=== PATIENT | female | born 1970 | race Caucasian/White ===

== ENCOUNTER → 2016-06-20 | Day surgery (SDC) | payer OTHER ==
[~2016-06-20] MED LIST: KETOROLAC TROMETHAMINE 30 MG/ML (IVP) VIAL IV PUSH ONE; LACTATED RINGER'S 1000 ML INJ 1,000 ML ONE; MEPERIDINE HCL 25 MG/ML VIAL ONE; MEPERIDINE HCL 50 MG/ML VIAL ONE; MIDAZOLAM HCL 2 MG/2 ML VIAL ONE; ONDANSETRON HCL 4 MG/2 ML VIAL IV PUSH ONE; PROPOFOL 200 MG/20 ML AMP IV ONE; ceFAZolin INJ 1,000 MG VIAL ONE; oxyCODONE/ACETAMINOPHEN 5 MG/325 MG TAB ONE
--- NOTE | 2016-06-22 22:01 | MP ---
cc: SUKH WALDEN M.D. DATE OF SURGERY 06/20/16 PREOPERATIVE DIAGNOSIS Desires permanent sterility. POSTOPERATIVE DIAGNOSIS Desires permanent sterility. PROCEDURE Laparoscopic bilateral tubal ligation by fulguration with Kleppinger forceps SURGEON Jolie Walden MD ANESTHESIA General. ESTIMATED BLOOD LOSS 30 mL COMPLICATIONS None. FINDINGS The patient had grossly normal fallopian tubes and ovaries. There were several benign-appearing subcentimeter follicular type cyst on both ovaries. The liver, upper abdominal organs were all grossly normal. DESCRIPTION OF PROCEDURE The patient brought into the operating room, following general anesthesia was placed in dorsal lithotomy position. Vagina, abdomen and perineum were prepped and draped. The HUMI catheter was placed in the uterus. The bladder was drained with a red rubber catheter. A 1-cm subumbilical skin incision was made. The Veress needle was inserted and 3 liters of CO2 was infused into the abdomen. The Veress needle was then removed and laparoscope was placed without difficulty. A second puncture site was created under direct visualization. The findings were as noted above. The Falope ring applicator was loaded and we attempted to place a ring on the left tube, however, it would not disengage from the applicator and there was a slight tear in the tube. We therefore elected to proceed with a Kleppinger tubal ligation by fulguration. Kleppinger forceps were used to fulgurate the proximal 4 cm of both fallopian tubes. The tubes were cut to get a visual look at the underside to be sure they were fulgurated. It appeared they were not so these were refulgurated again with the Kleppinger forceps. At that point, good fulguration was noted above tubes. Photos of all areas were taken. With no other pathology present, all instruments were removed and the CO2 gas was allowed to escape. The incisions were then closed with subcuticular 4-0 Vicryl stitch. The patient was then taken to recovery room in good condition with all counts correct. She will be discharged home when stable and alert to be followed up in 1 week in our office. Her discharge medication is Percocet. She was given instructions on physical activity, instructed to resume regular diet as tolerated. MD KAREN Darnell/ /11:38 AM /9:55 PM
== END | disposition home or self-care (01) ==
LOC: ESDC 09:14
PROVIDERS: ATTEND Obstetrics & Gynecology
DX: Z30.2 Encounter for sterilization (principal)
CPT/HCPCS: 00851; 58670; J0690; J1885; J2175; J2250; J2405; J7120

== ENCOUNTER 2017-03-21 14:52 | Emergency (ER) | payer MEDICARE, OTHER ==
[~2017-03-21] VITALS: Ht 170.2 cm; Wt 65.0 kg
[2017-03-21 14:54] VITALS: BP 131/66; PULSE 71; RESP 16; TEMP 98.4; O2SAT 100
[2017-03-21] MEDS ORDERED: VENL1CAP38 PO (15:25)
[2017-03-21] MEDS ORDERED: MONT4CHW2 CHEW (15:25)
[2017-03-21] MEDS ORDERED: ZOFR4TAB3 SL (15:25)
[2017-03-21] MEDS ORDERED: XANA1TAB2 PO (15:25)
[2017-03-21] MEDS ORDERED: CETI5CHW CHEW (15:25)
[2017-03-21] MEDS ORDERED: AMOX250C3 PO (15:25)
[2017-03-21] MEDS ORDERED: SODIUM CHLORIDE 0.9% FLUSH 10 ML FLUSH IVF PRN (15:45)
--- NOTE | 2017-03-21 15:54 | RADRPT ---
EXAM DATE/TIME: 03/21/2017 15:42 [facility] COMPARISON: No previous studies available for comparison. INDICATIONS : Short of breath. MEDICAL HISTORY : None. SURGICAL HISTORY : None. ENCOUNTER: Initial ACUITY: 1 day PAIN SCORE: 0/10 LOCATION: Bilateral chest FINDINGS: A single view of the chest demonstrates the lungs to be symmetrically aerated without evidence of mas s, infiltrate or effusion. The cardiomediastinal contours are unremarkable. Osseous structures are intact. CONCLUSION: Normal examination for a patient of this age. Aditya Mercer MD on March 21, 2017 at 15:52 Board Certified Radiologist. This report was verified electronically.
--- NOTE | 2017-03-21 17:06 | PD ---
HPI Chief Complaint: Chest Pain Time Seen by Provider: 15:44 Travel History International Travel<30 days: No Contact w/Intl Traveler<30days: No Traveled to known affect area: No History of Present Illness HPI 46-year-old female with PMH of anxiety, COPD, Crohn's disease, current smoker presents to the ED for evaluation of 6/10 left-sided chest pain. Patient reports the pain is 4/10 on presentation. She denies associated radiation, diaphoresis, shortness of breath, palpitations, nausea or vomiting. She endorses chronic, nonproductive cough, slightly worse recently. She states that the pain is exacerbated whenever she is in a stressful situation. She states that the pain is somewhat alleviated by relaxing with deep breathing. Episodes last variable periods of time. She endorses similar episodes for the last "month or so." She states that she is in the midst of a Crohn's flare. She has never been evaluated by a main line assembler. She is unsure of any family history of cardiac disease. She endorses smoking marijuana. She denies other illicit drug use. PFSH Past Medical History Autoimmune Disease: Yes (chron's) Anxiety: Yes Depression: Yes Cancer: Yes (cervical dysplasia) COPD: Yes Respiratory: Yes Migraines: Yes Influenza Vaccination: No ?: Not Tubal Ligation: Yes Past Surgical History Body Medical Devices: cervical fusion devices Cholecystectomy: Yes Social History Alcohol Use: No Tobacco Use: Yes (2.5/ day) Substance Use: Yes (marijuana) Allergies-Medications (Allergen,Severity, Reaction): Coded Allergies: Sulfa (Sulfonamide Antibiotics) (Verified Allergy, Severe, Hives, 03/21/17 ) fentanyl (Verified Allergy, Severe, Tachycardia, 03/21/17) lithium (Verified Allergy, Intermediate, Rash, 03/21/17) metronidazole (Verified Adverse Reaction, Unknown, Diarrhea, 03/21/17) Reported Meds & Prescriptions Reported Meds & Active Scripts Active Reported Zofran Odt (Ondansetron Odt) 4 Mg Tab 4 Mg SL Q8HR PRN Cetirizine (Cetirizine HCl) 5 Mg Chew 5 Mg CHEW DAILY Effexor XR 24 HR (Venlafaxine HCl) 37.5 Mg Cap 37.5 Mg PO DAILY Singulair (Montelukast Sodium) 4 Mg Chew 4 Mg CHEW HS Amoxicillin 250 Mg Cap 250 Mg PO TID Xanax (Alprazolam) 1 Mg Tab 1 Mg PO Q8H PRN Review of Systems Except as stated in HPI: all other systems reviewed are Neg Physical Exam Narrative GENERAL: Well-nourished, well-developed anxious-appearing white female in no acute distress. SKIN: Focused skin assessment warm/dry. HEAD: Normocephalic. EYES: No scleral icterus. No injection or drainage. NECK: Supple, trachea midline. No JVD or lymphadenopathy. CARDIOVASCULAR: Regular rate and rhythm without murmurs, gallops, or rubs. RESPIRATORY: Breath sounds clear and equal bilaterally. No accessory muscle use. GASTROINTESTINAL: Abdomen soft, non-tender, nondistended. Active bowel sounds. MUSCULOSKELETAL: No cyanosis, or edema. BACK: Nontender without obvious deformity. No CVA tenderness. Data Data Last Documented VS Vital Signs Date Time Temp Pulse Resp B/P (MAP) Pulse Ox O2 Delivery O2 Flow Rate FiO2 03/21/17 18:56 78 20 142/78 (99) 98 03/21/17 18:10 Room Air 03/21/17 14:54 98.4 Orders Orders Electrocardiogram (03/21/17 15:40) Ckmb (Isoenzyme) Profile (03/21/17 15:40) Complete Blood Count With Diff (03/21/17 15:40) Comprehensive Metabolic Panel (03/21/17 15:40) Magnesium (Mg) (03/21/17 15:40) Prothrombin Time / Inr (Pt) (03/21/17 15:40) Act Partial Throm Time (Ptt) (03/21/17 15:40) Troponin I (03/21/17 15:40) Lipase (03/21/17 15:40) Chest, Single Ap (03/21/17 15:40) Ecg Monitoring (03/21/17 15:40) Bilateral Bp Monitoring (03/21/17 15:40) Iv Access Insert/Monitor (03/21/17 15:40) Oximetry (03/21/17 15:40) Sodium Chloride 0.9% Flush (Ns Flush) (03/21/17 15:45) Ed Discharge Order (03/21/17 18:21) Electrocardiogram (03/21/17 17:44) Labs Laboratory Tests Test 03/21/17 16:40 White Blood Count 8.1 TH/MM3 Red Blood Count 4.21 MIL/MM3 Hemoglobin 13.1 GM/DL Hematocrit 38.6 % Mean Corpuscular Volume 91.7 FL Mean Corpuscular Hemoglobin 31.0 PG Mean Corpuscular Hemoglobin Concent 33.9 % Red Cell Distribution Width 13.5 % Platelet Count 269 TH/MM3 Mean Platelet Volume 8.6 FL Neutrophils (%) (Auto) 48.2 % Lymphocytes (%) (Auto) 44.3 % Monocytes (%) (Auto) 4.9 % Eosinophils (%) (Auto) 2.0 % Basophils (%) (Auto) 0.6 % Neutrophils # (Auto) 3.9 TH/MM3 Lymphocytes # (Auto) 3.6 TH/MM3 Monocytes # (Auto) 0.4 TH/MM3 Eosinophils # (Auto) 0.2 TH/MM3 Basophils # (Auto) 0.0 TH/MM3 CBC Comment DIFF FINAL Differential Comment Prothrombin Time 10.6 SEC Prothromb Time International Ratio 1.0 RATIO Activated Partial Thromboplast Time 29.3 SEC Blood Urea Nitrogen 14 MG/DL Creatinine 0.75 MG/DL Random Glucose 69 MG/DL Total Protein 7.2 GM/DL Albumin 3.8 GM/DL Calcium Level 9.0 MG/DL Magnesium Level 2.2 MG/DL Alkaline Phosphatase 63 U/L Aspartate Amino Transf (AST/SGOT) 6 U/L Alanine Aminotransferase (ALT/SGPT) 20 U/L Total Bilirubin 0.3 MG/DL Sodium Level 140 MEQ/L Potassium Level 3.8 MEQ/L Chloride Level 107 MEQ/L Carbon Dioxide Level 26.2 MEQ/L Anion Gap 7 MEQ/L Estimat Glomerular Filtration Rate 83 ML/MIN Total Creatine Kinase 53 U/L Troponin I LESS THAN 0.02 NG/ML Lipase 275 U/L [facility] Medical Decision Making Medical Screen Exam Complete: Yes Emergency Medical Condition: Yes Differential Diagnosis Anxiety versus chest pain versus COPD exacerbation versus pneumonia versus ACS versus other Narrative Course 46-year-old female with PMH of anxiety, COPD, Crohn's disease, current smoker presents to the ED for evaluation of 6/10 left-sided chest pain. Patient reports the pain is 4/10 on presentation. She denies associated radiation, diaphoresis, shortness of breath, palpitations, nausea or vomiting. She endorses chronic, nonproductive cough, slightly worse recently. She states that the pain is exacerbated whenever she is in a stressful situation,somewhat alleviated by relaxing with deep breathing. Episodes last variable periods of time. She endorses similar episodes for the last "month or so." She states that she is in the midst of a Crohn's flare. She has never been evaluated by a main line assembler. She is unsure of any family history of cardiac disease. She endorses smoking marijuana. She denies other illicit drug use. Vitals reviewed. Physical exam reveals no appreciable M/R/G. Breath sounds clear and equal bilaterally. EKG rate 63, sinus rhythm. RBBB no acute ST changes. Reviewed by Dr. Byrd. CXR: Normal for patient of this age per radiology read. Cardiac enzymes negative 1. No concerning abnormalities of the CBC, CMP, coags. I discussed the results of the workup with the patient. I recommended that she be admitted to the chest pain center for serial EKGs and cardiac enzymes. The patient states that she does not want to be admitted. She states that she will be uncomfortable, anxious the whole night. I offered to prescribe antianxiety medications during her stay. I discussed the risks of leaving with the patient including cardiac arrest and . The patient acknowledged understanding of these risks but still chose to leave AGAINST MEDICAL ADVICE. Diagnosis Primary Impression: Chest pain Qualified Codes: R07.9 - Chest pain, unspecified Referrals: Octavio Hitchcock MD Additional Instructions: Rest, hydrate. Avoid stressful situations as tolerated. Follow-up with a main line assembler as discussed. Return to the ED for worsening symptoms or any urgent or emergent medical condition. Disposition: 07 AGAINST MEDICAL ADVICE Condition: Stable Raysa Hurst Mar 21, 2017 17:06
[2017-03-21 17:09] VITALS: O2SAT 98
[2017-03-21 17:19] LABS: AUTOMATED NEUTROPHIL # 3.9 TH/MM3 (1.8-7.7); BASOPHIL % 0.6 % (0.0-2.0); EOSINOPHIL # 0.2 TH/MM3 (0-0.4); HEMATOCRIT 38.6 % (35.0-46.0); HEMO FLAGS DIFF FINAL; LYMPH % 44.3 % (9.0-44.0); LYMPHOCYTE # 3.6 TH/MM3 (1.0-4.8); MEAN CELL VOLUME 91.7 FL (80.0-100.0); MEAN CORPUSCULAR HGB CONC 33.9 % (32.0-36.0); MONO % 4.9 % (0.0-8.0); NEUT % 48.2 % (16.0-70.0); PLATELET COUNT 269 TH/MM3 (150-450); RED BLOOD COUNT 4.21 MIL/MM3 (4.00-5.30); RED CELL DISTRIBUTION WIDTH 13.5 % (11.6-17.2); WHITE BLOOD COUNT 8.1 TH/MM3 (4.0-11.0)
[2017-03-21 17:28] LABS: APTT (PATIENT) 29.3 SEC (24.3-30.1); PROTHROMBIN TIME - PATIENT 10.6 SEC (9.8-11.6)
[2017-03-21 17:34] LABS: ANION GAP 7 MEQ/L (5-15); AST (GOT) 6 U/L (15-37); BICARBONATE 26.2 MEQ/L (21.0-32.0); BLOOD UREA NITROGEN 14 MG/DL (7-18); CHLORIDE 107 MEQ/L (98-107); GLOMERULAR FILTRATION RATE 83 ML/MIN (>89); MAGNESIUM 2.2 MG/DL (1.5-2.5); POTASSIUM 3.8 MEQ/L (3.5-5.1); SODIUM (NA) 140 MEQ/L (136-145)
[2017-03-21 17:35] LABS: ALT (GPT) 20 U/L (10-53)
[2017-03-21 17:39] LABS: ALKALINE PHOSPHATASE 63 U/L (45-117); TOTAL BILIRUBIN ADULT 0.3 MG/DL (0.2-1.0)
[2017-03-21 17:40] LABS: CREATINE KINASE 53 U/L (26-192)
[2017-03-21 18:10] VITALS: BP_SYST 132; BP_SYST 134; BP_DIAS 68; BP_DIAS 70; PULSE 74; RESP 18; O2SAT 98
[2017-03-21 18:56] VITALS: BP 142/78
--- NOTE | 2017-03-22 14:07 | EKG ---
Date Performed: 03/21/2017 Time Performed: 17:44:20 PTAGE: 46 years EKG: Sinus rhythm RIGHT BUNDLE BRANCH BLOCK ABNORMAL ECG PREVIOUS TRACING : 03/21/2017 16.54 DOCTOR: Homar Amaya Interpretating Date/Time 03/22/2017 13:58:29
--- NOTE | 2017-03-26 13:49 | EKG ---
Date Performed: 03/21/2017 Time Performed: 16:54:30 PTAGE: 46 years EKG: SINUS BRADYCARDIA POSSIBLE RIGHT VENTRICULAR HYPERTROPHY ABNORMAL ECG NO PREVIOUS TRACING DOCTOR: Rene Moreira Interpretating Date/Time 03/26/2017 13:48:04
== END 2017-03-21 18:56 | disposition left against medical advice (07) ==
LOC: NEPE 14:52
DX: R07.9 Chest pain, unspecified (principal); K50.90 Crohn's disease, unspecified, without complications; J44.9 Chronic obstructive pulmonary disease, unspecified; F41.9 Anxiety disorder, unspecified; F32.9 Major depressive disorder, single episode, unspecified; F12.90 Cannabis use, unspecified, uncomplicated; F17.200 Nicotine dependence, unspecified, uncomplicated; R00.1 Bradycardia, unspecified
CPT/HCPCS: 71010; 80053; 82550; 83690; 83735; 84484; 85025; 85610; 85730; 93005; 99285